=== PATIENT | male | born 1970 | race Hispanic/Latino ===

== ENCOUNTER 2017-01-16 12:05 | Emergency (ER) | payer BC ==
[2017-01-16 12:40] VITALS: BP 126/85; PULSE 94; RESP 20; TEMP 98.4; O2SAT 98
[2017-01-16] MEDS ORDERED: Oxycodone/Acetaminophen 5/325 mg Tab PO STA (12:59)
[2017-01-16] MEDS ORDERED: Oxycodone/Acetaminophen 5/325 mg Tab ONE (13:18)
--- NOTE | 2017-01-16 13:29 | C.PDOC ---
History Of Present Illness 46 y/o male pmhx bipolar disorder and ADHD presents to the ED with complaints of pain to left side, mostly the shoulder x2 days. Pt states 2 days ago he was about 2 ft up on a ladder hanging a picture when he went to step down and fell landing on his left side. Denies head injury or LOC. Pt has been taking advil without relief. pain is worse with movement of the shoulder. He also notes bruising to left hip. Denies vomiting, numbness, weakness or any other complaints. Time Seen by Provider: 01/16/17 12:44 Chief Complaint (Nursing): Pain, Chronic History Per: Patient History/Exam Limitations: no limitations Onset/Duration Of Symptoms: Days Current Symptoms Are (Timing): Still Present Severity: Moderate Recent travel outside of the [place]: No Past Medical History Reviewed: Historical Data, Nursing Documentation, Vital Signs Vital Signs: Last Vital Signs Temp 98.4 F 01/16/17 12:38 Pulse 94 H 01/16/17 12:38 Resp 20 01/16/17 12:38 BP 126/85 01/16/17 12:38 Pulse Ox 98 01/16/17 14:05 - Medical History PMH: Anxiety, Bipolar Disorder, Depression Family History: States: Unknown Family Hx - Social History Hx Tobacco Use: No Hx Alcohol Use: No Hx Substance Use: Yes (marijuana use every day) - Immunization History Hx Tetanus Toxoid Vaccination: No Hx Influenza Vaccination: Yes Hx Pneumococcal Vaccination: No Review Of Systems Constitutional: Negative for: Fever, Chills Gastrointestinal: Negative for: Vomiting Musculoskeletal: Positive for: Other (pain to left side, mostly left shoulder) Neurological: Negative for: Weakness, Numbness Physical Exam - Physical Exam Appears: Non-toxic, No Acute Distress Skin: Warm, Dry, Ecchymosis (ecchymotic lesion to left lateral thigh; multiple other tattoos) Head: Atraumatic, Normacephalic Eye(s): bilateral: Normal Inspection Neck: Normal, Normal ROM, No Midline Cervical Tenderness, No Paracervical Tenderness, Supple Chest: Symmetrical, No Tenderness Cardiovascular: Rhythm Regular, No Murmur Respiratory: Normal Breath Sounds, No Rales, No Rhonchi, No Wheezing Gastrointestinal/Abdominal: Normal Exam, Soft, No Tenderness Back: Normal Inspection, No Vertebral Tenderness, No Paraspinal Tenderness Extremity: Capillary Refill (<2 seconds), No Deformity, Other (tenderness to anterior left shoulder, pain with abduction; normal elbow and hand. Left hip with mild nonfocal tenderness) Neurological/Psych: Oriented x3, Normal Speech, Normal Motor, Normal Sensation Gait: Steady ED Course And Treatment O2 Sat by Pulse Oximetry: 98 (room air) Pulse Ox Interpretation: Normal Medical Decision Making Medical Decision Making: Plan: * XR left shoulder and hip * percocet Progress: Xrays reviewed by me showing no acute fracture of shoulder or pelvis. Arm sling applied by RN. Upon re-eval, pain is improving. Patient asking for Rx for home. Patient advised to follow up with his PCP or orthopedic if the pain persists Disposition Counseled Patient/Family Regarding: Diagnosis, Need For Followup, Rx Given - Disposition Referrals: Boston Wetzel MD [Staff Provider] - Disposition: HOME/ ROUTINE Disposition Time: 13:26 Condition: STABLE Additional Instructions: Your xray was normal, no fracture. Please take Motrin as needed for pain every 6 hours, with food to not upset stomach. Take Ultracet for more severe pain as needed every 8 hours. Follow up with orthopedic if pain persists over one week. Prescriptions: Ibuprofen [Motrin] 600 mg PO Q8 #30 tab traMADol/Acetaminophen [Ultracet 325 MG-37.5 MG] 1 tab PO Q8 #15 tab Instructions: Contusion in Adults (DC) - POA Present On Arrival: None - Clinical Impression Clinical Impression: Accidental fall, Shoulder contusion, Contusion, hip - PA / [employer] CR[employer]ING D[employer]OR / Resident Statement MD/DO has reviewed & agrees with the documentation as recorded. - Scribe Statement The provider has reviewed the documentation as recorded by the Ashish Emmanuel All medical record entries made by the Ashish were at my direction and personally dictated by me. I have reviewed the chart and agree that the record accurately reflects my personal performance of the history, physical exam, medical decision making, and the department course for this patient. I have also personally directed, reviewed, and agree with the discharge instructions and disposition.
--- NOTE | 2017-01-16 14:00 | RAD ---
PROCEDURE: Radiographs of the Left Shoulder HISTORY: pain s.p fall onto left side COMPARISON: No prior. FINDINGS: BONES: Normal. No fracture. JOINTS: Normal. Glenohumeral and acromioclavicular joints preserved. No osteoarthritis. SOFT TISSUES: Normal. OTHER FINDINGS: None. IMPRESSION: Normal radiographs of the left shoulder.
--- NOTE | 2017-01-16 14:01 | RAD ---
PROCEDURE: Left Hip X-ray Radiographs. HISTORY: pain s.p fall onto left side COMPARISON: None. FINDINGS: BONES: Normal. No fracture. JOINTS: Normal. SOFT TISSUES: Normal. OTHER FINDINGS: None. IMPRESSION: Normal left hip radiographs.
== END 2017-01-16 13:51 | disposition home or self-care (01) ==
LOC: C.ER 12:05
DX: S40.012A Contusion of left shoulder, initial encounter (principal); S70.02XA Contusion of left hip, initial encounter; W11.XXXA Fall on and from ladder, initial encounter

== ENCOUNTER 2018-05-29 10:10 | Emergency (ER) | payer BC ==
[2018-05-29 10:29] VITALS: O2SAT 98
[2018-05-29 11:12] VITALS: BMI 22.4
--- NOTE | 2018-05-29 11:13 | C.PDOC ---
History Of Present Illness 47-YEAR-OLD MALE COMES IN WITH NEW ONSET SX. PS "MY MIND DOESN'T FEEL CLEAR" UNSTEADINESS X4 HOURS. STATES INITIALLY HE FELT COMPLETE "LIKE I WAS SHUTTING DOWN" having difficulty standing cannot stand without support. shaking. PT had a second episode 2 hours ago still feeling persistent symptoms. HE HAS A HX OF CHRONIC B/L LOWER LEG PARASTHESIAS BUT STATES NORMALLY CAN WALK FINE, PT DRESSES OK. PT W HX OF SIMILAR PRIOR EPISODE BUT THOUGHT ASSOCIATED WITH KETAMINE ABUSE. ON EXAM NO ACUTE INTOX ATRAUMATIC ARACELIS: LOWER>UPPER ATAXIA SEE [facility] Time Seen by Provider: 05/29/18 10:53 History Per: Patient History/Exam Limitations: no limitations Past Medical History Reviewed: Historical Data, Nursing Documentation, Vital Signs Vital Signs: Last Vital Signs Temp 98.7 F 05/29/18 10:28 Pulse 68 05/29/18 10:28 Resp 20 05/29/18 10:28 BP 172/87 H 05/29/18 10:28 Pulse Ox 98 05/29/18 10:28 - Medical History PMH: Anxiety, Bipolar Disorder, Depression Family History: States: No Known Family Hx - Social History Hx Tobacco Use: No Hx Alcohol Use: No Hx Substance Use: Yes (marijuana use every day) - Immunization History Hx Tetanus Toxoid Vaccination: No Hx Influenza Vaccination: Yes Hx Pneumococcal Vaccination: No Review Of Systems Cardiovascular: Negative for: Chest Pain Gastrointestinal: Negative for: Vomiting Neurological: Positive for: Other (UNSTEADY GAIT) Physical Exam - Physical Exam Appears: Non-toxic, No Acute Distress Skin: Warm, Dry, No Rash Head: Atraumatic Eye(s): bilateral: Normal Inspection Nose: Normal Oral Mucosa: Moist Lips: Normal Appearing Neck: Normal ROM Cardiovascular: Rhythm Regular, No Murmur Respiratory: Normal Breath Sounds, No Accessory Muscle Use Gastrointestinal/Abdominal: Soft, No Tenderness Back: Normal Inspection Extremity: Normal ROM, No Deformity Neurological/Psych: Other ( LOWER>UPPER ATAXIA SEE [facility] ) ED Course And Treatment - Laboratory Results Result Diagrams: 05/29/18 11:30 05/29/18 11:30 ECG: Interpreted By Me, Viewed By Me ECG Rhythm: Sinus Rhythm Interpretation Of ECG: ID interval 164 ms, with premature atrial complexes in a pattern of bigeminy Rate From EC O2 Sat by Pulse Oximetry: 98 Pulse Ox Interpretation: Normal (RA) NIHSS Stroke Scale - Date/Time Evaluation Performed Date Performed: 05/29/18 Time Performed: 11:14 When Was NIHSS Performed: Code Stroke - How Severe is the Stroke Level of Consciousness: 0=Alert LOC to Questions: 0=Both comments correct LOC to commands: 0=Obeys both correctly Best Gaze: 0=Normal Visual: 0=No visual loss Facial: 0=Normal Motor Arm - Left: 0=No drift Motor Arm - Right: 0=No drift Motor Leg - Left: 2=Falls before 5 sec Motor Leg - Right: 1=Drift before 5 sec Limb Ataxia: 0=Absent Sensory: 1=Mild to moderate loss Best Language: 0=No aphasia Dysarthia: 1=Mild to moderate slurring Extinction & Inattention (Neglect): 0=Normal, no object Score: 5 Progress - Re-Evaluation Re-evaluation Note: 05/29/18 11:59 D/W DR SAGASTUME AWARE OF ER FINDINGS, NOT CANDIDATE FOR TPA/INTERVENTION. 05/29/18 12:16 EXAM UNCH INITIAL 05/29/18 12:28 PT ADVISED NEED FOR ADMISSION DUE TO PERSIST SX. The patient declines admission to the hospital and wishes to leave the Emergency Department. This action is against my medical advice. This decision was made with informed refusal. The patient was told that admission to the hospital is necessary. Explanation of the reasons why were discussed. The risks of leaving were explained to the patient and include, but are not limited to, worsening of known or currently unknown conditions, permanent disability and from undiagnosed or untreated conditions. The patient has the capacity to make this informed decision and understands my explanation of the current medical problem and risks of leaving. The patient voluntarily accepts these risks and signed an AMA form documenting our conversation. The patient was given the opportunity to ask questions and reconsider. The patient was encouraged to return to the Emergency Department at any time for further care. - Data Reviewed Data Reviewed: Lab, Diagnostic imaging, EKG, Old records rTPA Inclusion/Exclusion - Refusal of Treatment Patient Refused Treatment: No - Inclusion Criteria for Altepase Patient is 18 years or Older: Yes The Clinical Diagnosis of Ischemic Stroke That is Causing a Potentially Disabling Neurological Deficit: Yes Time of Onset is Well Established to be Less Than 270 Minute Before Treatment Would Begin: Yes Risk/Benefit Discussed With Patient/Family Member Present: Yes - Exclusion Criteria for Altepase Uncontrolled Hypertension at Time of Treatment (Systolic BP above 185 or Diastolic BP above 110 mmHg): No Active Internal Bleeding: No Known Bleeding Diathesis Including but Not Limited to: Platelets Below 100,000/mm,PTT Above 40 sec After Heparin Use, Current Use of Oral Anitcoagulant With INR Greater Than 1.7 or PT Greater Than 15 secs: No Evidence of an Intracranial Hemorrhage: No Evidence of Major Acute Infarct With Signs Greater Than 1/3 MCA Territory: No Suspicion of Subarachnoid Hemorrhage on Pretreatment Evaluation Even if CT Head Negative For Hemorrhage: No - Warning to TPA With Conditions Following Conditions Weighed Against Anticipated Benefit: Yes Condition: Care Team Unable to Determine Eligibilty Disposition Counseled Patient/Family Regarding: Studies Performed, Diagnosis, Need For Followup - Disposition Referrals: [facility] [Outside] [facility] [Outside] Disposition: AGAINST MEDICAL ADVICE Disposition Time: 12:29 Condition: STABLE Additional Instructions: YOU HAVE BEEN ADVISED OF THE NEED FOR FURTHER TESTING OF YOUR EMERGENCY MEDICAL CONDITION. YOU HAVE BEEN ADVISED THE RISKS OF LEAVING INCLUDING DISABILITY, DETERIORATION AND . YOU HAVE STATED VERBAL UNDERSTANDING AND WISH TO PROCEED TO LEAVE AGAINST MEDICAL ADVICE. FOLLOW UP WITH YOUR PMD NILSON. RETURN IF WORSENING SYMPTOMS. Instructions: [employer] [facility]ys[facility] Forms: General Discharge Instructions - Clinical Impression Clinical Impression: Dyskinesia - Scribe Statement The provider has reviewed the documentation as recorded by the Scribe (Miguel A Wetzel) Provider Attestation: All medical record entries made by the Scribe were at my direction and personally dictated by me. I have reviewed the chart and agree that the record accurately reflects my personal performance of the history, physical exam, medical decision making, and the department course for this patient. I have also personally directed, reviewed, and agree with the discharge instructions and disposition.
[2018-05-29] MEDS ORDERED: Iodixanol 320 MG/ML 100 ML BOTTLE IV ONE (11:20)
--- NOTE | 2018-05-29 11:23 | CP.PCM.CON ---
Past Patient History - Infectious Disease Hx of Infectious Diseases: None - Past Social History Smoking Status: Never Smoked - PSYCHIATRIC Hx Anxiety: Yes Hx Bipolar Disorder: Yes Hx Depression: Yes Hx Substance Use: Yes (marijuana use every day) - SURGICAL HISTORY Hx Surgeries: Yes Other/Comment: left eye surgery x 3 - ANESTHESIA Hx Anesthesia: Yes Hx Anesthesia Reactions: No Meds Allergies/Adverse Reactions: Allergies Allergy/AdvReac Type Severity Reaction Status Date / Time No Known Allergies Allergy Verified 01/16/17 12:31 Results - Vital Signs Recent Vital Signs: Last Vital Signs Temp 98.7 F 05/29/18 10:28 Pulse 68 05/29/18 10:28 Resp 20 05/29/18 10:28 BP 172/87 H 05/29/18 10:28 Pulse Ox 98 05/29/18 11:15 - Labs Labs: Laboratory Results - last 24 hr 05/29/18 11:15 POC Glucose (mg/dL) 82
[2018-05-29 11:38] LABS: BASO % 0.7 % (0.0-2.0); EOS # 0.2 K/uL (0.0-0.7); EOS % 2.8 % (0.0-4.0); HEMOGLOBIN 10.9 g/dL (12.0-18.0); LYMPH # 1.9 K/uL (1.0-4.3); LYMPH % 30.7 % (20.0-40.0); MEAN CELL VOLUME 97.5 fL (80.0-94.0); MEAN CORPUSCULAR HEMOGLOBIN 33.7 pg (27.0-31.0); MEAN CORPUSCULAR HGB CONC 34.6 g/dL (33.0-37.0); MEAN PLATELET VOLUME 6.7 fL (7.2-11.7); MONO # 0.7 K/uL (0.0-0.8); MONO % 11.6 % (0.0-10.0); NEUT # 3.4 K/uL (1.8-7.0); NEUT % 54.2 % (50.0-75.0); RBC 3.25 Mil/uL (4.40-5.90); WHITE BLOOD COUNT 6.3 K/uL (4.8-10.8)
[2018-05-29 11:44] LABS: INR 1.1; PROTHROMBIN TIME 12.4 SECONDS (9.7-12.2)
[2018-05-29 11:49] LABS: ALB/GLOB RATIO 1.7 (1.0-2.1); ALBUMIN 5.1 g/dL (3.5-5.0); ALT/SGPT 27 U/L (21-72); AST/SGOT 25 U/L (17-59); BLOOD UREA NITROGEN 16 mg/dL (9-20); CALCIUM 9.3 mg/dl (8.6-10.4); GFR NON-AFRICAN AMERICAN > 60; HDL CHOLESTEROL 74 mg/dL (30-70)
--- NOTE | 2018-05-29 11:54 | CT ---
Date of service: 05/29/2018 PROCEDURE: CT HEAD WITHOUT CONTRAST. HISTORY: Code Stroke COMPARISON: No prior study available comparison TECHNIQUE: Axial computed tomography images were obtained through the head/brain without intravenous contrast. Radiation dose: Total exam DLP = 2251.91 mGy-cm. This CT exam was performed using one or more of the following dose reduction techniques: Automated exposure control, adjustment of the mA and/or kV according to patient size, and/or use of iterative reconstruction technique. FINDINGS: This study is limited by motion artifact. HEMORRHAGE: No acute parenchymal, subarachnoid or extra-axial hemorrhage. BRAIN: Minor chronic periventricular white matter ischemic changes are felt be present. There is small area of low attenuation left frontal subcortical white matter best ( axial series 8, # 35) consistent with an age indeterminate subcortical infarct. Another tiny low-attenuation focus in the right frontal subcortical white matter the also felt be present begin (see axial series 8, image # 38). Questionable tiny dilated perivascular space or chronic lacunar type infarct left inferolateral basal ganglia see axial image number 22 No also felt be present possibility of a small hyperacute infarct cannot be excluded. Mild generalized volume loss. No obvious parenchymal nor extra-axial masses or collections seen on this noncontrast study. VENTRICLES: No obstructive hydrocephalus. CALVARIUM: No acute calvarial fractures PARANASAL SINUSES: Unremarkable as visualized. No significant inflammatory changes. MASTOID AIR CELLS: Unremarkable as visualized. No inflammatory changes. OTHER FINDINGS: Changes of left-sided cataract surgery. There is a curvilinear-elliptical shaped focus low attenuation abutting the posterior inferior margin of the left globe of uncertain etiology however this could be secondary to prior retinal detachment repair. Clinical correlation recommended. IMPRESSION: Chronic periventricular white matter ischemic changes with a few scattered age-indeterminate subcortical infarcts. Mild generalized volume loss. Postsurgical changes left globe as described. Clinical correlation with ophthalmologic history. Note that these findings were discussed with Dr. Argueta at 11:37 a.m. with written down and read back verification. .
[2018-05-29 12:00] LABS: LDL CHOLESTEROL 78 mg/dL (0-129)
[2018-05-29 12:04] LABS: URINE BILIRUBIN NEGATIVE (NEGATIVE); URINE BLOOD NEGATIVE (NEGATIVE); URINE CLARITY Clear (Clear); URINE COLOR Straw (YELLOW); URINE GLUCOSE (UA) NORMAL (Normal); URINE LEUKOCYTE ESTERASE NEG Leu/uL (Negative); URINE PROTEIN NEGATIVE (NEGATIVE); URINE UROBILINOGEN NORMAL mg/dL (0.2-1.0)
--- NOTE | 2018-05-29 12:09 | RAD ---
HISTORY: Code Stroke COMPARISON: No prior. TECHNIQUE: Chest, one view. FINDINGS: Examination limited by habitus. LUNGS: No focal consolidation. Please note that chest x-ray has limited sensitivity for the detection of pulmonary masses. PLEURA: No significant pleural effusion identified. No definite pneumothorax . CARDIOVASCULAR: Heart size appears within normal limits. No significant atherosclerotic calcification present. OSSEOUS STRUCTURES: Osseous demineralization. Degenerative changes. VISUALIZED UPPER ABDOMEN: Unremarkable. OTHER FINDINGS: None. IMPRESSION: No focal consolidation, significant pleural effusion, or definite pneumothorax identified.
[2018-05-29 12:25] LABS: BARBITURATES, UR NEGATIVE (NEGATIVE); BENZODIAZEPINES, UR NEGATIVE (NEGATIVE); OPIATES, UR NEGATIVE (NEGATIVE); PHENCYCLIDINE, UR NEGATIVE (NEGATIVE)
--- NOTE | 2018-05-29 12:29 | CT ---
Date of service: 05/29/2018. PROCEDURE: CT Angiography of the neck and brain. HISTORY: Code stroke. COMPARISON: Correlation made with concurrent CT scan of the brain.. TECHNIQUE: Contiguous helical/transaxial images of the neck were obtained from the level of the vertex of the skull to the superior mediastinum in the arteriographic phase of enhancement. Coronal and sagittal reformats or also generated. IV contrast dose: 100 cc Visipaque 320 Radiation dose: Total exam DLP = 591.24 mGy-cm. This CT exam was performed using one or more of the following dose reduction techniques: Automated exposure control, adjustment of the mA and/or kV according to patient size, and/or use of iterative reconstruction technique, FINDINGS: The visualized transverse portion of the aortic arch is widely patent with no significant calcified atherosclerotic disease. Origins of the great vessels are also widely patent. CAROTID ARTERIES: The common carotid arteries, carotid bifurcations and internal carotid arteries are patent without evidence of occlusion or dissection. No significant stenosis.. Distal internal carotid arteries including the petrous cavernous and supraclinoid segments also patent without evidence of occlusion or significant stenosis.. Vertebral Arteries The vertebral arteries are patent throughout left-side of which is slightly larger in caliber/more dominant than the right. Basilar artery patent. OTHER FINDINGS: The visualized major branches of the [place] are patent. The distal branches of the anterior middle and posterior cerebral arteries are also patent and relatively symmetric in appearance. Atherosclerotic calcification or mural plaque present. Mild degenerative spondylosis seen at the C6-C7 level IMPRESSION: No evidence of occlusion, dissection nor significant stenosis involving the cervical carotid, or vertebral circulation. The intra cerebral circulation is also patent without evidence of large aneurysm nor vascular malformation.
[2018-05-29 12:43] VITALS: BP 116/79; PULSE 78; RESP 18; TEMP 98
[2018-05-29 12:54] LABS: FOLATE 16.8 ng/mL
--- NOTE | 2018-05-30 12:25 | CARD ---
APPROVED REPORT Date of service: 05/29/2018 EKG Measurement Heart [id number] <Conclusion> Sinus rhythm with premature atrial complexes in a pattern of bigeminy Otherwise normal ECG
== END 2018-05-29 12:31 | disposition left against medical advice (07) ==
LOC: C.ER 10:10
DX: G24.9 Dystonia, unspecified (principal); F41.9 Anxiety disorder, unspecified; F31.9 Bipolar disorder, unspecified
CPT/HCPCS: 70450; 70496; 70498; 71045; 80053; 80061; 81001; 82746; 82948; 83036; 83090; 84484; 85025; 85610; 85730; 86850; 86900; 93005; 99285; G0480; Q9967

== ENCOUNTER 2018-05-30 08:59 | Emergency (ER) | payer BC ==
[2018-05-30 09:00] VITALS: BMI 22.4
[2018-05-30 09:06] VITALS: BP 153/78; PULSE 67; RESP 16; TEMP 98; O2SAT 100
== END 2018-05-30 09:07 | disposition left against medical advice (07) ==
LOC: C.ER 08:59
DX: Z02.89 Encounter for other administrative examinations (principal); R25.3 Fasciculation